=== PATIENT | female | born 2000 | race Caucasian/White ===

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

== ENCOUNTER 2018-07-06 06:05 | Inpatient (IN) ==
[2018-07-06] MEDS ORDERED: OXYTOCIN 30 UNITS/500 ML BAG IV PRN ×3 (06:25→15:17)
--- NOTE | 2018-07-06 06:30 | Labor Progress Brief Note ---
Date of Service July 06, 2018 Subjective Patient r/o for labor earlier in the night and sent home as no cervical change occurred. Shortly after returning home, patient thought she might be leaking but did not call in. She noted increase in contraction frequency and intensity, and called the service and was advised to return. She is now in obvious discomfort and breathing through contractions. LOF clear noted on chux. Cervix 2/90/-2, with FHT Cat 1 and [place] Q2-3m. Patient to be admitted for labor. Was already planned for IOL today and reports she had her membranes stripped yesterday in office. Wants epidural magdy. Results & Data Vital Signs (Past 12 Hours) Vital Signs Temp Pulse Resp BP 07/06/18 06:14 36.6 C 76 18 122/78
[2018-07-06 06:40] LABS: Hematocrit (blood only) 31.4 % (37-47); Hemoglobin 10.4 g/dL (12.0-16.0); Mean Corpuscular Volume 77.3 fL (80-100); Mean Platelet Volume 10.3 fL (7.4-10.4); Platelet Count 221 K/uL (130-400); RDW Coefficient of Variation 14.7 % (11.5-14.5); RDW Standard Deviation 41.5 fL (36.4-46.3); Red Blood Count 4.06 M/uL (4.2-5.4); White Blood Count 22.36 K/uL (4.8-10.8)
[2018-07-06] MEDS ORDERED: ePHEDrine sulfate 50 MG/ML AMP ONE (06:40)
[2018-07-06] MEDS ORDERED: fentaNYL citrate 100 MCG/2 ML VIAL ONE (06:40)
[2018-07-06] MEDS ORDERED: fentaNYL 2MCG/ML ROPIV 1.25MG/ML 100 ML BAG EPI ONE (06:40)
[2018-07-06] MEDS ORDERED: BUPIVACAINE 0.25% 30 ML VIAL ONE (06:40)
[2018-07-06 06:46] LABS: Mean Corpuscular Hgb Conc 33.1 g/dL (32-36)
[2018-07-06] MEDS: LACTATED RINGER'S 1,000 ML IV PRN ×2 (06:48→07:50)
--- NOTE | 2018-07-06 07:39 | Anesthesiology Consultation ---
Date of Service July 06, 2018 Assessment & Plan (1) Encounter for pre-operative examination: Chart Review Chart Review: Acceptable Risk for Surgery and Patient NOT seen in Pre Admission Testing Consults Requested none History Height/Weight Height: 5 ft 2 in Weight: 75.75 kg Allergies Allergy/AdvReac Type Severity Reaction Status Date / Time No Known Allergies Allergy Unverified 06/30/18 16:27 Medications Home Medications Medication Instructions Recorded Confirmed Last Taken vit-iron fum-folic ac 1 tab PO DAILY 06/30/18 07/05/18 07/05/18 09:00 [ Vitamin] Active Medications Generic Name Dose Route Start Last Admin Trade Name Freq PRN Reason Stop Dose Admin Lactated Ringer's 1,000 mls @ 125 mls/hr 07/06/18 06:25 07/06/18 06:48 Lr IV 07/08/18 06:24 999 mls/hr .Q8H PRN Administration L&D Protocol Protocol Past Medical History Medical History Asthma Ovarian cyst Social History Smoking Status: Never smoker Hx Alcohol Use: No Hx Substance Use: No Physical Exam Vital Signs Last Vital Signs Temp 36.6 C 07/06/18 06:16 Pulse 75 07/06/18 07:33 Resp 18 07/06/18 07:33 BP 117/66 07/06/18 07:33 Pulse Ox 100 07/06/18 07:32 Testing Laboratory Results 07/06/18 06:30
[2018-07-06] MEDS ORDERED: NALOXONE HCL 0.4 MG/1 ML VIAL/CARP IV PRN (07:43)
[2018-07-06] MEDS ORDERED: fentaNYL 2MCG/ML ROPIV 1.25MG/ML 100 ML BAG EPI PRN (07:43)
[2018-07-06] MEDS ORDERED: NALBUPHINE HCL INJ 10 MG/ML AMP IV PRN (07:43)
[2018-07-06] MEDS ORDERED: DiphenhydrAMINE HCL 50 MG/ML VIAL IV PRN (07:43)
[2018-07-06] MEDS ORDERED: ONDANSETRON INJ 2 MG/ML 2 ML VIAL IV PRN (07:43)
[2018-07-06] MEDS ORDERED: ePHEDrine sulfate 50 MG/ML AMP IV PRN (07:43)
[2018-07-06] MEDS ORDERED: NALOXONE HCL 1 MG in SODIUM CHLORIDE 0.9% 1000ML 1,000 ML IV PRN (07:43)
[2018-07-06] MEDS ORDERED: LACTATED RINGER'S 1,000 ML IV PRN (07:43)
--- NOTE | 2018-07-06 08:41 | History & Physical Report ---
Date of Service July 06, 2018 Assessment & Plan (1) Admitted to labor and delivery: Pt is a 17 year old with lmp of 09/19/2017 and EDC of 06/26/2018 confirmed by 1st trimester ultrasound on 11/24/2017 at 8+5 who presents at 41+3 s/p membrane stripping in office yesterday, presented overnight with for r/o labor was sent home, returned with clear lof and CTX. - Epidural management - FHT reassuring Cat 1 tracing - SROM 290/-2 - LR @ 125 - If failure of labor to progress consider augmentation -PRN Pitocin 30 units in 500 mls @ 1 mls/hr -> up by 2 - Monitor FHT/toco - Monitor BP - Routine labor care - Anticipate Vaginal , Expectant management History of Present Illness Primary Care Provider: NO PCP Pt is a 17 year old with lmp of 09/19/2017 and EDC of 06/26/2018 confirmed by 1st trimester ultrasound on 11/24/2017 at 8+5 who presents at 41+3 s/p membrane stripping in office yesterday, presented overnight with for r/o labor was sent home, returned with lof and CTX. ROM with clear LOF was confirmed on exam PT was admitted for management of labor. Of note pt was scheduled for induction today. course was significant for postdates with planned IOL today. Office cervical exam yesterday 07/05/18 was 2/50/-3 cervical exam today 2/90/-2 srom for clear fluid. She reported feeling intense, painful contractions on adminssion, since receiving her epidural she has been experiencing intermittent pressure. Over the last 24 hours she denies vomiting, RUQ pain, swelling, headache, blurred vision, vaginal bleeding, or decreased movement. Pt resting comfortably in bed no acute complaints, very pleased with the effectiveness of her epidural labs First Visit: 9+3 Weight Gain: 13.79 lbs A+ antibody neg Last HGB: 10.4 03/30/2018 Rubella Immune HIV neg Pap to young, has not had one Last U/S 03/02/18: Cephalic, EFW 25% EGA:41+3 BP Range 100/60-126/72 U/A: gardnella GBS negative RPR Negative HBsAG Negative GC/ Chlamydia negative Allergies Allergy/AdvReac Type Severity Reaction Status Date / Time No Known Allergies Allergy Unverified 06/30/18 16:27 Home Medications Home Medications Medication Instructions Recorded Confirmed Type vit-iron fum-folic ac 1 tab PO DAILY 06/30/18 07/06/18 History [ Vitamin] Patient History Medical History Asthma Ovarian cyst Social History Preferred Language: Ukrainian Communication Ability: Effective Beliefs That Will Affect Care: None marital status: Single Current Living Situation: Spouse Other Information That Helps Us Care for You: No Feels Safe at Home: Yes Safety Concerns: Feels Safe At This Time Smoking Status: Never smoker Hx Alcohol Use: No Hx Substance Use: No OB History OBHX: Prime, not on bc at conception, LMP 09/19/2017 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 Advised to not change cat litter. Physical Exam Constitutional: WD/WN, vitals as above Eyes: normal visual bermudez by confrontation Neck: normal visual inspection and trachea midline Respiratory: normal respiratory effort, lungs clear to auscultation Cardiovascular: RRR, no murmur, no edema Heart Sounds: normal S1 and normal S2 Extremities: normal capillary refill; no calf tenderness Gastrointestinal (Abdomen): Gravid Baby, Cephalic by Stoney's Skin: no rashes, warm and dry Psychiatric: A+Ox3, euthymic affect Results & Data Vital Signs (Past 12 Hours) Vital Signs Temp Pulse Resp BP Pulse Ox 07/06/18 08:30 94 H 105/65 07/06/18 08:27 78 100 07/06/18 08:22 67 100 07/06/18 08:17 95 H 99 07/06/18 08:16 82 110/63 07/06/18 08:12 84 100 07/06/18 08:07 89 100 07/06/18 08:02 87 100 07/06/18 08:01 18 07/06/18 07:59 82 117/66 07/06/18 07:57 88 100 07/06/18 07:52 87 100 07/06/18 07:48 18 07/06/18 07:47 71 99 07/06/18 07:44 82 116/65 07/06/18 07:42 73 100 07/06/18 07:41 86 114/62 07/06/18 07:38 18 07/06/18 07:37 82 100 07/06/18 07:33 75 18 117/66 07/06/18 07:32 84 100 07/06/18 07:31 78 118/66 07/06/18 07:29 86 111/60 07/06/18 07:28 18 07/06/18 07:27 71 115/67 100 07/06/18 07:26 75 121/68 07/06/18 07:24 85 126/76 07/06/18 07:22 81 100 07/06/18 07:17 88 99 07/06/18 07:12 86 100 07/06/18 07:09 85 92 07/06/18 07:07 73 99 07/06/18 07:05 88 117/68 07/06/18 06:16 36.6 C 76 18 122/78 07/06/18 06:14 36.6 C 76 18 122/78 Laboratory Results 07/06/18 07/06/18 Range/Units 06:30 06:30 WBC 22.36 H (4.8-10.8) K/uL RBC 4.06 L (4.2-5.4) M/uL Hgb 10.4 L (12.0-16.0) g/dL Hct 31.4 L (37-47) % MCV 77.3 L (80-100) fL MCH 25.6 (25-34) pg MCHC 33.1 (32-36) g/dL RDW Std Deviation 41.5 (36.4-46.3) fL RDW Coeff of Petra 14.7 H (11.5-14.5) % Plt Count 221 (130-400) K/uL MPV 10.3 (7.4-10.4) fL RPR Pending Medications Administered Current Inpatient Medications Diphenhydramine HCl (Benadryl) 25 mg IV Q6H PRN PRN Reason: Itching Stop: 07/07/18 07:42 Ephedrine Sulfate (Ephedrine Sulfate) 10 mg IV Q5M PRN PRN Reason: Hypotension Stop: 07/07/18 07:42 Oxytocin (Pitocin) 30 units in 500 mls @ 333.333 mls/hr IV .Q1H30M PRN; Protocol PRN Reason: Bleeding Control Stop: 08/05/18 06:24 Lactated Ringer's (Lr) 1,000 mls @ 125 mls/hr IV .Q8H PRN; Protocol PRN Reason: L&D Protocol Stop: 07/08/18 06:24 Last Admin: 07/06/18 07:50 Dose: 125 mls/hr Documented by: Lactated Ringer's (Lr) 1,000 mls @ 999 mls/hr IV .Q1H1M PRN PRN Reason: Hypotension Stop: 07/07/18 07:42 Naloxone HCl 1 mg/ Sodium (Chloride) 1,002.5 mls @ 50 mls/hr IV .Q20H3M PRN PRN Reason: itching or nausea Stop: 07/07/18 07:42 Nalbuphine HCl (Nubain) 5 mg IV Q10M PRN PRN Reason: itching or nausea Stop: 07/07/18 07:42 Naloxone HCl (Narcan) 0.1 mg IV UD PRN PRN Reason: respiratory depression Stop: 07/07/18 07:42 Ondansetron HCl (Zofran) 4 mg IV Q6H PRN PRN Reason: Nausea And Vomiting Stop: 07/07/18 07:42 Ropivacaine (Epidural (L&D)) 100 ml EPI PRN PRN; Protocol PRN Reason: Pain R/T Labor Stop: 07/07/18 07:42 Code Status & VTE Plan Code Status Full Monitoring External Monitor Heart Rate: 145 Moderate Accelerations: Present Decelerations: absent Contraction Frequency: 4 minutes Category 1 Supervising Physician Co-Signing Physician Notes Resident Physician Supervision Note: I was present with Dr. Ventura during the history and exam. I discussed the case with the resident and agree with the findings and plan as documented in the note. Any exceptions or clarifications are listed here: Cervix; 4/100/-1, forebag ruptured for clear fluid, IUPC placed. Tracing Cat II. Patient comfortable with epidural, will monitor for ctx intensity, augment labor if needed. Documented By: Jerome Giraldo Jr, MD, FACOG Resident Activity Tracking Resident Involvement: Resident Care Provided Care Provided: Adult [facility] Medicine
--- NOTE | 2018-07-06 12:57 | Obstetrical Progress Note ---
Date of Service July 06, 2018 Assessment & Plan (1) Admitted to labor and delivery: - tracing CAT II - anterior lip - continue pitocin Physical Exam Genitourinary: anterior lip/(+)1 Results & Data Vital Signs (Past 12 Hours) Vital Signs Temp Pulse Resp BP Pulse Ox 07/06/18 12:52 89 98 07/06/18 12:47 102 H 99 07/06/18 12:44 99 H 126/72 07/06/18 12:42 90 100 07/06/18 12:37 89 100 07/06/18 12:32 89 100 07/06/18 12:29 97 H 128/71 07/06/18 12:27 91 H 100 07/06/18 12:22 90 100 07/06/18 12:17 93 H 100 07/06/18 12:15 90 130/71 07/06/18 12:12 93 H 100 07/06/18 12:07 96 H 100 07/06/18 12:02 88 100 07/06/18 12:01 99.1 F 18 07/06/18 11:59 98 H 115/70 07/06/18 11:57 95 H 100 07/06/18 11:52 90 100 07/06/18 11:47 85 100 07/06/18 11:45 92 H 126/72 07/06/18 11:42 86 100 07/06/18 11:37 85 100 07/06/18 11:32 76 100 07/06/18 11:31 18 07/06/18 11:29 81 120/68 07/06/18 11:27 82 100 07/06/18 11:22 79 100 07/06/18 11:17 75 100 07/06/18 11:15 86 134/69 07/06/18 11:12 85 100 07/06/18 11:07 76 100 07/06/18 11:02 69 98 07/06/18 11:01 99.7 F H 18 07/06/18 10:59 90 112/63 07/06/18 10:57 76 98 07/06/18 10:52 77 98 07/06/18 10:47 73 100 07/06/18 10:45 93 H 126/69 07/06/18 10:42 74 100 07/06/18 10:37 82 100 07/06/18 10:32 98 H 99 05/14/19 10:30 18 07/06/18 10:29 96 H 106/61 07/06/18 10:27 90 98 07/06/18 10:22 90 98 07/06/18 10:17 81 99 07/06/18 10:16 90 108/66 07/06/18 10:12 73 98 07/06/18 10:07 72 98 07/06/18 10:02 72 98 07/06/18 10:01 18 07/06/18 10:00 82 114/66 07/06/18 09:57 71 98 07/06/18 09:52 74 100 07/06/18 09:47 91 H 100 07/06/18 09:44 91 H 107/63 07/06/18 09:42 71 100 07/06/18 09:37 102 H 100 07/06/18 09:32 73 100 07/06/18 09:31 18 07/06/18 09:30 81 120/69 07/06/18 09:27 79 100 07/06/18 09:22 68 100 07/06/18 09:17 108 H 100 07/06/18 09:15 85 104/59 L 07/06/18 09:12 80 100 07/06/18 09:07 80 100 07/06/18 09:02 69 100 07/06/18 09:00 80 114/60 07/06/18 08:57 98.1 F 99 H 18 100 07/06/18 08:52 83 100 07/06/18 08:47 78 100 07/06/18 08:44 100 H 108/62 07/06/18 08:42 99 H 100 07/06/18 08:37 91 H 99 07/06/18 08:32 88 100 07/06/18 08:30 94 H 18 105/65 07/06/18 08:27 78 100 07/06/18 08:22 67 100 07/06/18 08:17 95 H 99 07/06/18 08:16 82 110/63 07/06/18 08:12 84 100 07/06/18 08:07 89 100 07/06/18 08:02 87 100 07/06/18 08:01 18 07/06/18 07:59 82 117/66 07/06/18 07:57 88 100 05/14/19 07:52 87 100 05/14/19 07:48 18 05/14/19 07:47 71 99 05/14/19 07:44 82 116/65 05/14/19 07:42 73 100 05/14/19 07:41 86 114/62 05/14/19 07:38 18 05/14/19 07:37 82 100 05/14/19 07:33 75 18 117/66 05/14/19 07:32 84 100 051419 07:31 78 118/66 05/14/19 07:29 86 111/60 05/14/19 07:28 18 05/14/19 07:27 71 115/67 100 05/14/19 07:26 75 121/68 05/14/19 07:24 85 126/76 05/14/19 07:22 81 100 05/14/19 07:17 88 99 05/14/19 07:12 86 100 0514/19 07:09 85 92 0514 07:07 73 99 1419 07:05 88 117/68 05/14/19 06:16 97.9 F 76 18 122/78 05/14/19 06:14 97.9 F 76 18 122/78
[2018-07-06] MEDS ORDERED: ACETAMINOPHEN W/CODEINE #3 1 TAB PO PRN (15:17)
[2018-07-06] MEDS ORDERED: ACETAMINOPHEN 325 MG TAB PO PRN (15:17)
[2018-07-06] MEDS ORDERED: IBUPROFEN 600 MG TAB PO PRN (15:17)
[2018-07-06] MEDS ORDERED: BENZOCAINE 20% AER SPR 82.5 GM CAN EXT PRN (15:17)
[2018-07-06] MEDS ORDERED: SUPERCREAM 0.870% 15 GM JAR EXT PRN (15:17)
[2018-07-06] MEDS ORDERED: HYDROCORTISONE ACETATE 25 MG SUPP PR PRN (15:17)
[2018-07-06] MEDS ORDERED: ACETAMINOPHEN 325 MG TAB ONE (15:26)
[2018-07-06 15:27] LABS: Base Excess Cord Venous Blood -3.9 mEq/L (-7.7-1.9); Cord Venous Blood HCO3 20 mmol/L (18.4-26.8); Cord Venous Blood PCO2 34 mmHg (30.4-57.2); Cord Venous Blood PO2 35 mmHg (14.1-43.3); Cord Venous Blood pH 7.39 (7.20-7.44)
[2018-07-06 15:28] LABS: Base Excess Cord Arterial Bld -2.2 mEq/L (-9-1.8); CO2 Cord Arterial Blood 51 mmHg (39.1-73.5); HCO3 Cord Arterial Blood 25 mmol/L (19.7-28.5); pH Cord Arterial Blood 7.31 (7.1-7.38)
--- NOTE | 2018-07-06 15:34 | Obstetrical Progress Note ---
Date of Service July 06, 2018 Assessment & Plan (1) Admitted to labor and delivery: - Tracing Cat II - Begin 2nd stage Physical Exam Genitourinary: Cx: Complete/(+)1-(+)2 Results & Data Vital Signs (Past 12 Hours) Vital Signs Temp Pulse Resp BP Pulse Ox 07/06/18 13:22 99 H 100 07/06/18 13:17 105 H 100 07/06/18 13:15 101 H 134/78 07/06/18 13:12 90 100 07/06/18 13:07 99 H 100 07/06/18 13:02 87 100 07/06/18 13:00 91 H 137/73 07/06/18 12:57 91 H 100 07/06/18 12:52 89 98 07/06/18 12:47 102 H 99 07/06/18 12:44 99 H 126/72 07/06/18 12:42 90 100 07/06/18 12:37 89 100 07/06/18 12:32 89 100 07/06/18 12:29 97 H 128/71 07/06/18 12:27 91 H 100 07/06/18 12:22 90 100 07/06/18 12:17 93 H 100 07/06/18 12:15 90 130/71 07/06/18 12:12 93 H 100 07/06/18 12:07 96 H 100 07/06/18 12:02 88 100 07/06/18 12:01 99.1 F 18 07/06/18 11:59 98 H 115/70 07/06/18 11:57 95 H 100 07/06/18 11:52 90 100 07/06/18 11:47 85 100 07/06/18 11:45 92 H 126/72 07/06/18 11:42 86 100 07/06/18 11:37 85 100 07/06/18 11:32 76 100 07/06/18 11:31 18 07/06/18 11:29 81 120/68 07/06/18 11:27 82 100 07/06/18 11:22 79 100 07/06/18 11:17 75 100 07/06/18 11:15 86 134/69 07/06/18 11:12 85 100 07/06/18 11:07 76 100 07/06/18 11:02 69 98 07/06/18 11:01 99.7 F H 18 07/06/18 10:59 90 112/63 07/06/18 10:57 76 98 07/06/18 10:52 77 98 07/06/18 10:47 73 100 07/06/18 10:45 93 H 126/69 07/06/18 10:42 74 100 07/06/18 10:37 82 100 07/06/18 10:32 98 H 99 07/06/18 10:30 18 07/06/18 10:29 96 H 106/61 07/06/18 10:27 90 98 07/06/18 10:22 90 98 07/06/18 10:17 81 99 07/06/18 10:16 90 108/66 07/06/18 10:12 73 98 07/06/18 10:07 72 98 07/06/18 10:02 72 98 07/06/18 10:01 18 07/06/18 10:00 82 114/66 07/06/18 09:57 71 98 07/06/18 09:52 74 100 07/06/18 09:47 91 H 100 07/06/18 09:44 91 H 107/63 07/06/18 09:42 71 100 07/06/18 09:37 102 H 100 07/06/18 09:32 73 100 07/06/18 09:31 18 07/06/18 09:30 81 120/69 07/06/18 09:27 79 100 07/06/18 09:22 68 100 07/06/18 09:17 108 H 100 07/06/18 09:15 85 104/59 L 07/06/18 09:12 80 100 07/06/18 09:07 80 100 07/06/18 09:02 69 100 07/06/18 09:00 80 114/60 07/06/18 08:57 98.1 F 99 H 18 100 07/06/18 08:52 83 100 07/06/18 08:47 78 100 05 08:44 100 H 108/62 07/06/18 08:42 99 H 100 07/06/18 08:37 91 H 99 07/06/18 08:32 88 100 07/06/18 08:30 94 H 18 105/65 07/06/18 08:27 78 100 05/14/19 08:22 67 100 05/14/19 08:17 95 H 99 05/14/19 08:16 82 110/63 05/14/19 08:12 84 100 05/14/19 08:07 89 100 05/14/19 08:02 87 100 05/14/19 08:01 18 05/1419 07:59 82 117/66 05/14/19 07:57 88 100 05/14/19 07:52 87 100 05/14/19 07:48 18 05/14/19 07:47 71 99 05/14/19 07:44 82 116/65 05/14/19 07:42 73 100 05/14/19 07:41 86 114/62 05/14/19 07:38 18 05/14/19 07:37 82 100 05/14/19 07:33 75 18 117/66 05/14/19 07:32 84 100 05/14/19 07:31 78 118/66 05/14/19 07:29 86 111/60 05/14/19 07:28 18 05/14/19 07:27 71 115/67 100 05/14/19 07:26 75 121/68 05/14/19 07:24 85 126/76 05/14/19 07:22 81 100 05/14/19 07:17 88 99 05/14/19 07:12 86 100 05/14/19 07:09 85 92 05/14/19 07:07 73 99 05/14/19 07:05 88 117/68 05/14/19 06:16 97.9 F 76 18 122/78 0514/19 06:14 97.9 F 76 18 122/78
--- NOTE | 2018-07-06 16:10 | Anesthesia Procedure Note ---
Date of Service July 06, 2018 Anesthesia Post Epidural Note Vital Signs Vital Signs: Temp Pulse Resp BP Pulse Ox 37.3 C 83 18 134/68 98 07/06/18 14:45 07/06/18 15:59 07/06/18 15:45 07/06/18 15:59 07/06/18 14:32 Notes Mental Status: alert / awake / arousable Patient Amnestic to Procedure: Yes Nausea / Vomiting: adequately controlled Pain: adequately controlled Airway Patency, RR, SpO2: stable & adequate BP & HR: stable & adequate Hydration State: stable & adequate Neuraxial Anesthesia: was administered and sensory block resolved Anesthetic Complications: no major complications apparent and Pt Satisfied with anesthetic care Epidural: Removed without complications and With tip intact
[2018-07-06] MEDS: DOCUSATE SODIUM 100 MG CAP PO SCH (21:02)
--- NOTE | 2018-07-06 21:37 | Delivery Summary ---
DATE OF OPERATION: 07/06/2018 FINDINGS: Viable female with Apgars of 8 and 9. Baby delivered over midline episiotomy. Tight nuchal cord cut on the perineum. Baby delivered, placenta delivered. Cord gases, cord blood samples obtained. Episiotomy repaired with 4-0 and 2-0 Vicryl in routine fashion. Estimated blood loss is 300 mL. LABOR NOTE: The patient is a 17-year-old 1, para 0 with an EDC of June 26, who was admitted at 41+ weeks gestational age in active labor. The patient had been scheduled for an induction on July 06. She had had some contractions late on the evening of July 05 and had been observed and discharged, but returned with spontaneous rupture of membranes. At that time, she was deemed to be in active labor. The patient has had a benign course. Blood type is A positive, antibody negative, rubella immune, hepatitis B negative. She had normal 1-hour Glucola x2 and a negative third trimester beta strep culture. Upon admission, patient was 2 cm dilated, 50% effaced, and -3 station, category 1. The patient was uncomfortable. Anesthesia was consulted and an epidural was placed. Following placement of the epidural, the patient was 4 cm, 100% effaced, and 0 station. An intrauterine pressure catheter was placed and the delivering physician assumed care. Contractions spaced out after the epidural and Pitocin augmentation was started. The patient progressed to full dilatation, began her second stage. She pushed for approximately 45 minutes delivering the viable female. Following delivery of the vertex, there was a tight nuchal cord that could not be reduced. Cord was cut and the baby was then delivered. Cord gases, cord blood samples obtained. Placenta was delivered spontaneously. Midline episiotomy was repaired with 4-0 and 2-0 Vicryl in routine fashion. Estimated blood loss 300 mL. Sponge and needle count was correct. I attest to the content of the Intraoperative Record and any orders documented therein. Any exception s are noted below.
[2018-07-07 07:41] LABS: Hematocrit (blood only) 27.2 % (37-47); Hemoglobin 9.3 g/dL (12.0-16.0); Mean Corpuscular Hgb Conc 34.2 g/dL (32-36); Mean Corpuscular Volume 76.8 fL (80-100); Platelet Count 211 K/uL (130-400); RDW Coefficient of Variation 15.2 % (11.5-14.5); RDW Standard Deviation 43.3 fL (36.4-46.3); Red Blood Count 3.54 M/uL (4.2-5.4)
--- NOTE | 2018-07-07 07:55 | Obstetrical Progress Note ---
Date of Service July 07, 2018 Assessment & Plan (1) Admitted to labor and delivery: - routine care - doing well Subjective Ambulation: ambulating normally Voiding: no voiding problems Feeding Type:: breast feeding Physical Exam Vital Signs (Past 24 Hours) Last Vital Signs Temp 98.1 F 07/07/18 05:00 Pulse 79 07/07/18 05:00 Resp 16 07/07/18 05:00 BP 100/58 L 07/07/18 05:00 Pulse Ox 100 07/06/18 19:45 Cardiovascular Extremities: no calf tenderness Gastrointestinal (Abdomen) Fundus firm below U
[2018-07-07] MEDS: PRENATAL VITAMIN 1 TAB PO SCH (08:57)
[2018-07-07] MEDS: DOCUSATE SODIUM 100 MG CAP PO SCH ×2 (08:57→21:22)
[2018-07-07] MEDS ORDERED: DIPHTHERIA/TETANUS/PERTUSSIS 0.5 ML SYR/VIAL IM ONE (09:00)
[2018-07-07] MEDS ORDERED: BISACODYL 5 MG TABEC PO SCH (20:00)
[2018-07-08 07:07] LABS: Hemoglobin 9.6 g/dL (12.0-16.0)
--- NOTE | 2018-07-08 07:17 | Obstetrical Progress Note ---
Date of Service July 08, 2018 Assessment & Plan (1) Status post vaginal delivery: Patient is a 17 year old PPD 2 s/p -Vital signs WNL bp 115/67 T36.5, -Hemoglobin is 9.6 today, 9.3 on ppd1 down from 10.4 on admission. no si/sx of anemia. -Pt is doing clinically well -Continue to encourage ambulation as tolerated, Monitor and control pain with motrin prn, Continue diet as tolerated. -Continue to support and encourage breast feeding, will provide breast pump prescription -Counseled patient on discharge instructions including Vaginal bleeding, fevers, followup, lifting restrictions, breast feeding, vitamins, and nothing in the vagina for 6 weeks. Pt was agreeable -Plan for d/c today Supervising Physician Co-Signing Physician Notes Resident Physician Supervision Note: I was present with Dr. Ventura during the history and exam. I discussed the case with the resident and agree with the findings and plan as documented in the note. Any exceptions or clarifications are listed here: PPD2 doing well, DC home today. Documented By: Melanie Zhong DO FACOOG Subjective Patient sitting up in bed with baby in her armsand dad sitting across the room. Mom plans to pump and bottle feed her breast milk, dad does not understand the benefits of breast feeding. Had a lengthy conversation with the family discussing the benefits of brest feeding, passive immunity etc. Pt and FOB verbalized understanding. Pt requesting breast pump prescription. Otherwise Patient is tolerating her diet, ambulating, passing gas, voiding and stooling appropriately. Reports moderate lochia. Denies H/A, chest pain, palpitations and uti syx. Answered all questions, no concerns at present, pain is well controlled Physical Exam Physical Exam: Constitutional: WD/WN, vitals as above no acute distress Eyes: normal visual bermudez by confrontation Neck: normal visual inspection Respiratory: normal respiratory effort, lungs clear to auscultation Cardiovascular: RRR, no murmur, no edema Heart Sounds: normal S1 and normal S2 Extremities: no calf tenderness Gastrointestinal (Abdomen): Uterus firm and below the umbilicus Results & Data Vital Signs (Past 12 Hours) Vital Signs Temp Pulse Resp BP Pulse Ox 07/07/18 23:10 36.5 C 66 16 115/67 98 07/07/18 19:50 36.4 C L 68 16 113/60 98 Laboratory Results 07/08/18 07/07/18 07/06/18 Range/Units 06:12 07:28 06:30 WBC 28.20 H (4.8-10.8) K/uL RBC 3.54 L (4.2-5.4) M/uL Hgb 9.6 L 9.3 L (12.0-16.0) g/dL Hct 29.0 L 27.2 L (37-47) % MCV 76.8 L (80-100) fL MCH 26.3 (25-34) pg MCHC 34.2 (32-36) g/dL RDW Std Deviation 43.3 (36.4-46.3) fL RDW Coeff of Petra 15.2 H (11.5-14.5) % Plt Count 211 (130-400) K/uL MPV 10.0 (7.4-10.4) fL RPR Nonreactive (Nonreactive) Medications Administered Current Inpatient Medications Acetaminophen (Tylenol) 650 mg PO Q6H PRN PRN Reason: Pain/LOCK/Fever Stop: 08/05/18 15:16 Acetaminophen/Codeine Phosphate (Tylenol W/Codeine #3) 1 - 2 tab PO Q4H PRN PRN Reason: Pain not controlled with... Stop: 08/05/18 15:16 Benzocaine (Dermoplast Pain Relieving [place]) 1 appln EXT PRN PRN PRN Reason: Perineal Discomfort Stop: 08/05/18 15:16 Cocaine HCl (Supercream 0.870%) 1 gm EXT BID PRN PRN Reason: Hemorrhoidal Inflammation Stop: 07/20/18 15:16 Docusate Sodium (Colace) 100 mg PO BID PINA Stop: 08/05/18 20:59 Last Admin: 07/07/18 21:22 Dose: 100 mg Documented by: Hydrocortisone (Anusol Hc) 25 mg ME BID PRN PRN Reason: Hemorrhoidal Inflammation Stop: 08/05/18 15:16 Oxytocin (Pitocin) 30 units in 500 mls @ 999 mls/hr IV .Q31M PRN; Protocol PRN Reason: labor augemntation Stop: 07/08/18 08:58 Last Titration: 07/06/18 15:07 Dose: Infused Documented by: Oxytocin (Pitocin) 30 units in 500 mls @ 333.333 mls/hr IV .Q1H30M PRN; Protocol PRN Reason: Bleeding Control Stop: 08/05/18 15:16 Ibuprofen (Motrin) 600 mg PO Q4H PRN PRN Reason: Pain/LOCK/Cramping/Fever Stop: 08/05/18 15:16 Last Admin: 07/07/18 15:50 Dose: 600 mg Documented by: Sudhakar Multivit/[place]/Iron/Folic Ac ( Vitamin) [facility] [place]: 08/06/18 08:59 Last Admin: 07/07/18 08:57 Dose: 1 tab Documented by: Resident Activity Tracking Resident Involvement: Resident Care Provided Care Provided: Adult Hospital Medicine
[2018-07-08] MEDS: DOCUSATE SODIUM 100 MG CAP PO SCH (08:22)
[2018-07-08] MEDS: PRENATAL VITAMIN 1 TAB PO SCH (08:23)
== END 2018-07-08 12:48 | disposition home or self-care (01) | DRG 807 ==
LOC: 4S1 06:05 → 4S2 17:31